=== PATIENT | female | born 2000 | race Asian ===

== ENCOUNTER 2023-07-13 15:29 | Emergency (ER) | payer MEDICAID ==
[~2023-07-13] VITALS: Ht 156.2 cm; Wt 43.5 kg
[2023-07-13 17:20] VITALS: BP 110/77; PULSE 61; RESP 17; TEMP 98; O2SAT 100
== END 2023-07-13 17:21 | disposition home or self-care (01) ==
LOC: ER 15:29
DX: J02.9 Acute pharyngitis, unspecified (principal)
CPT/HCPCS: 99282